=== PATIENT | female | born 1960 | race African-American/Black ===

== ENCOUNTER → 2017-01-03 | Outpatient (CLI) | payer OTHER | END | disposition home or self-care (01) | LOC: PCVCIMAG 15:06 | PROVIDERS: ATTEND Internal Medicine Cardiovascular Disease | DX: R07.9 Chest pain, unspecified (principal); R94.31 Abnormal electrocardiogram [ECG] [EKG]; R53.83 Other fatigue; E55.9 Vitamin D deficiency, unspecified; E03.9 Hypothyroidism, unspecified; E78.5 Hyperlipidemia, unspecified | CPT/HCPCS: 93325; 93351 ==